=== PATIENT | male | born 1950 | race Caucasian/White ===

== ENCOUNTER 2019-07-06 11:47 | Emergency (ER) | payer MEDICARE, OTHER ==
[2019-07-06] MEDS ORDERED: Albuterol/Ipratropium 3.0-0.5 MG/3 ML Neb Soln NEB ONE (11:54)
[2019-07-06] MEDS ORDERED: methylPREDNISolone Sodium Succinate 125 MG/2 ML SDV IVPUSH ONE (11:54)
--- NOTE | 2019-07-06 12:06 | EDM.PDOC ---
ED HPI GENERAL MEDICAL PROBLEM - General Chief Complaint: Respiratory Problem Stated Complaint: APPENDICITIS Time Seen by Provider: 07/06/19 11:47 Source of Information: Reports: Patient, Family, Provider History Limitations: Reports: No Limitations - History of Present Illness INITIAL COMMENTS - FREE TEXT/NARRATIVE: The patient was seen earlier today and fund to have appendicitis. He had some wheezing when anaesthesia saw him and he was given a duoneb. He went over to OR and his breathing got worse with more wheezing, shortness of breath and he was confused. The [facility] was considering intubating him but with a simple mask he got better. He is not a candidate to have surgery here now. He was brought back over to have a transfer arranged. He has no lung history such as COPD or asthma. He does smoke 2 packs of cigarettes per day. Onset: Gradual Duration: Hour(s): Location: Reports: Abdomen Quality: Reports: Sharp Severity: Moderate Improves with: Reports: None Worsens with: Reports: None Associated Symptoms: Reports: Shortness of Breath. Denies: Chest Pain, Cough, Fever/Chills, Headaches, Nausea/Vomiting - Related Data Allergies Allergy/AdvReac Type Severity Reaction Status Date / Time No Known Allergies Allergy Verified 07/06/19 11:51 Home Meds: Home Meds Diclofenac Sodium [Diclofenac Sodium ER] 75 mg PO BID PRN 07/06/19 [History] Past Medical History - Past Health History Medical/Surgical History: Denies Medical/Surgical History Genitourinary History: Reports: BPH, Retention, Urinary Other Genitourinary History: Patient has had some form of urological procedure called a lift procedure. It appears to be some form procedure around the prostatic urethra without doing a TURP. Social & Family History - Living Situation & Occupation Living situation: Reports: Occupation: Retired ED ROS GENERAL - Review of Systems Review Of Systems: See Below Constitutional: Reports: No Symptoms HEENT: Reports: No Symptoms Respiratory: Reports: Shortness of Breath, Wheezing Cardiovascular: Reports: No Symptoms Endocrine: Reports: No Symptoms GI/Abdominal: Reports: Abdominal Pain. Denies: Nausea, Vomiting : Reports: No Symptoms Musculoskeletal: Reports: No Symptoms ED EXAM, GENERAL - Physical Exam Exam: See Below Exam Limited By: No Limitations General Appearance: Alert, Mild Distress Ears: Normal External Exam Nose: Normal Inspection Head: Atraumatic, Normocephalic Neck: Normal Inspection Respiratory/Chest: Respiratory Distress (Mild), Wheezing Cardiovascular: Regular Rate, Rhythm, No Edema, No Murmur GI/Abdominal: Soft, No Organomegaly, No Mass, Tender (Moderate tenderness to the right lower abdomen) Back Exam: Normal Inspection Extremities: Normal Inspection Course - Vital Signs Last Recorded V/S: Last Vital Signs Temp 101.6 F H 07/06/19 11:52 Pulse 114 H 07/06/19 11:52 Resp 22 H 07/06/19 11:52 BP 142/83 H 07/06/19 11:52 Pulse Ox 96 07/06/19 11:52 - Orders/Labs/Meds Orders: Active Orders 24 hr Category Date Time Status BIPAP Adult [RT BiPAP/CPAP] [] ASDIRECTED Care 07/06/19 11:53 Active RT Aerosol Therapy [] ASDIRECTED Care 07/06/19 11:54 Active Meds: Medications Discontinued Medications Generic Name Dose Route Start Last Admin Trade Name Freq PRN Reason Stop Dose Admin Albuterol/Ipratropium 3 ml 07/06/19 11:54 Duoneb 3.0-0.5 Mg/3 Ml NEB 07/06/19 11:55 ONETIME ONE Methylprednisolone Sodium Succinate 125 mg 07/06/19 11:54 Solu-Medrol IVPUSH 07/06/19 11:55 ONETIME ONE - Re-Assessments/Exams Free Text/Narrative Re-Assessment/Exam: 07/06/19 12:06 He was on a simple mask. I ordered BIPAP, solu-medrol 125mg IV, and duoneb. I called [facility] in [place] and talked with Dr Worthington and he accepted the patient. Departure - Departure Time of Disposition: 12:10 Disposition: DC/Tfer to Acute Hospital 02 Condition: Serious Clinical Impression: Appendicitis Qualifiers: Appendicitis type: acute appendicitis Acute appendicitis type: with localized peritonitis Appendicitis gangrene presence: without gangrene Appendicitis perforation presence: without perforation Appendicitis abscess presence: without abscess Qualified Code(s): K35.30 - Acute appendicitis with localized peritonitis, without perforation or gangrene Reactive airway disease Qualifiers: Asthma severity: moderate Asthma persistence: persistent Asthma complication type: with acute exacerbation Qualified Code(s): J45.41 - Moderate persistent asthma with (acute) exacerbation Respiratory failure Qualifiers: Chronicity: acute Respiratory failure complication: hypoxia Qualified Code(s): J96.01 - Acute respiratory failure with hypoxia - Discharge Information Referrals: Eric Millan MD [Primary Care Provider] - - My Orders Last 24 Hours: My Active Orders 07/06/19 11:53 BIPAP Adult [RT BiPAP/CPAP] [RC] ASDIRECTED 07/06/19 11:54 RT Aerosol Therapy [RC] ASDIRECTED - Assessment/Plan Last 24 Hours: My Active Orders 07/06/19 11:53 BIPAP Adult [RT BiPAP/CPAP] [RC] ASDIRECTED 07/06/19 11:54 RT Aerosol Therapy [RC] ASDIRECTED
== END 2019-07-06 12:20 ==
LOC: JD.ED 11:47
DX: J96.01 Acute respiratory failure with hypoxia (principal); J45.41 Moderate persistent asthma with (acute) exacerbation; K35.30 Acute appendicitis with localized peritonitis, without perforation or gangrene
CPT/HCPCS: 94640; 94660; 96374; 99285; J2930; J7620-GY

== ENCOUNTER → 2019-07-06 | Day surgery (SDC) | payer MEDICARE, OTHER ==
[~2019-07-06] MED LIST: Albuterol 0.083% 2.5 MG/3 ML Neb Soln NEB ONE; Albuterol/Ipratropium 3.0-0.5 MG/3 ML Neb Soln NEB ONE; Bupivacaine 0.5% 30 ML SDV ONE; Dexamethasone 4 MG/ML 5 ML MDV ONE; Dextrose 5%-0.9% NaCl 1,000 ML IV SCH; Diatrizoate Meglumine/Diatrizoate Sodium 37% 120 ML Bottle PO ONE; HYDROmorphone 0.5 MG/0.5 ML Syringe IVPUSH ONE; Iopamidol 612 MG/ML 100 ML Bottle IVPUSH ONE; Levofloxacin 250 MG Tab PO ONE; Lidocaine 1% 0 ML ONE; Lidocaine 2% Jelly 10 ML Urojet MUCMEM ONE; Meropenem 1 GM SDV ONE; Meropenem 1 GM in Sodium Chloride 0.9% 100 ML IV ONE; Midazolam 1 MG/ML 2 ML SDV ONE; Ondansetron 4 MG/2 ML SDV IVPUSH ONE; Ondansetron 4 MG/2 ML SDV ONE; Propofol 200 MG/20 ML SDV ONE; Rocuronium 50 MG/5 ML Vial ONE; Sodium Chloride 0.9% 10 ML Syringe FLUSH PRN; Sodium Chloride 0.9% 100 ML IV SCH; fentaNYL 250 MCG/5 ML SDV ONE; methylPREDNISolone Sodium Succinate 125 MG/2 ML SDV IVPUSH ONE
--- NOTE | 2019-07-06 05:43 | EDM.PDOC ---
<Conor Solomon - Last Filed: 07/06/19 08:52> ED HPI GENERAL MEDICAL PROBLEM - General Chief Complaint: Genitourinary Problem Stated Complaint: TROUBLE URINATING Time Seen by Provider: 07/06/19 05:38 - Related Data Allergies Allergy/AdvReac Type Severity Reaction Status Date / Time No Known Allergies Allergy Verified 07/06/19 11:51 Home Meds: Home Meds Diclofenac Sodium [Diclofenac Sodium ER] 75 mg PO BID PRN 07/06/19 [History] Course - Vital Signs Last Recorded V/S: Last Vital Signs Temp 36.7 C 07/06/19 05:32 Pulse 99 07/06/19 05:32 Resp 20 07/06/19 05:32 BP 143/76 H 07/06/19 05:32 Pulse Ox 87 L 07/06/19 09:57 - Orders/Labs/Meds Orders: Active Orders 24 hr Category Date Time Status Admission Status [Patient Status] [ADT] Routine ADT 07/06/19 11:19 Active Patient Status [ADT] Routine ADT 07/06/19 10:14 Active Bladder Scan [RC] ASDIRECTED Care 07/06/19 05:38 Active EKG Documentation Completion [RC] STAT Care 07/06/19 09:55 Active Insert Brand Catheter [Insert Urinary Catheter] [OM.PC] Care 07/06/19 05:45 Ordered Q24H RT Aerosol Therapy [RC] ASDIRECTED Care 07/06/19 09:57 Active Urinary Catheter Assessment [RC] ASDIRECTED Care 07/06/19 05:39 Active CULTURE BLOOD [BC] Stat Lab 07/06/19 07:30 Received CULTURE BLOOD [BC] Stat Lab 07/06/19 07:43 Received Dextrose 5%-0.9% NaCl [Dextrose 5%-Normal Saline] 1,000 Med 07/06/19 06:15 Active ml IV ASDIRECTED Sodium Chloride 0.9% [Normal Saline] 100 ml Med 07/06/19 07:15 Active IV ASDIRECTED Sodium Chloride 0.9% [Saline Flush] Med 07/06/19 07:09 Active 10 ml FLUSH ONETIME PRN Blood Culture x2 Reflex Set [OM.PC] Stat Oth 07/06/19 07:10 Ordered Schedule Procedure [COMM] Urgent Oth 07/06/19 09:40 Ordered Medication Orders Dextrose/Sodium Chloride (Dextrose 5%-Normal Saline) 1,000 mls @ 150 mls/hr IV ASDIRECTED KARLA Last Admin: 07/06/19 06:33 Dose: 150 mls/hr Sodium Chloride (Normal Saline) 100 mls @ 75 mls/hr IV ASDIRECTED KARLA Last Admin: 07/06/19 08:14 Dose: 75 mls/hr Sodium Chloride (Saline Flush) 10 ml FLUSH ONETIME PRN PRN Reason: IV FLUSH Last Admin: 07/06/19 08:14 Dose: 10 ml Labs: Laboratory Tests 07/06/19 07/06/19 07/06/19 Range/Units 05:52 06:36 06:36 WBC 21.99 H (4.23-9.07) K/mm3 RBC 5.57 (4.63-6.08) M/mm3 Hgb 14.1 (13.7-17.5) gm/dl Hct 42.8 (40.1-51.0) % MCV 76.8 L (79.0-92.2) fl MCH 25.3 L (25.7-32.2) pg MCHC 32.9 (32.2-35.5) g/dl RDW Std Deviation 50.2 H (35.1-43.9) fL Plt Count 276 (163-337) K/mm3 MPV 10.2 (9.4-12.3) fl Neutrophils % (Manual) 83 H (40-60) % Band Neutrophils % 0 (0-10) % Lymphocytes % (Manual) 12 L (20-40) % Atypical Lymphs % 0 % Monocytes % (Manual) 5 (2-10) % Eosinophils % (Manual) 0 L (0.8-7.0) % Basophils % (Manual) 0 L (0.2-1.2) Platelet Estimate Adequate Anisocytosis 1+ slight RBC Morph Comment Not Reportable PT 11.8 (9.7-12.0) SECONDS INR 1.09 Sodium (136-145) mEq/L Potassium (3.5-5.1) mEq/L Chloride (98-107) mEq/L Carbon Dioxide (21-32) mEq/L Anion Gap (5-15) BUN (7-18) mg/dL Creatinine (0.7-1.3) mg/dL Est Cr Clr Drug Dosing mL/min Estimated GFR (MDRD) (>60) mL/min BUN/Creatinine Ratio (14-18) Glucose (83-115) mg/dL Lactic Acid (0.4-2.0) mmol/L Calcium (8.5-10.1) mg/dL Total Bilirubin (0.2-1.0) mg/dL AST (15-37) U/L ALT (16-63) U/L Alkaline Phosphatase (46-116) U/L C-Reactive Protein (<1.0) mg/dL Total Protein (6.4-8.2) g/dl Albumin (3.4-5.0) g/dl Globulin gm/dL Albumin/Globulin Ratio (1-2) Lipase (73-393) U/L Urine Color Yellow (Yellow) Urine Appearance Clear (Clear) Urine pH 6.0 (5.0-8.0) Ur Specific [place] 1.025 (1.005-1.030) Urine Protein 1+ H (Negative) Urine Glucose (UA) Negative (Negative) Urine Ketones Trace H (Negative) Urine Occult Blood Negative (Negative) Urine Nitrite Negative (Negative) Urine Bilirubin 1+ H (Negative) Urine Urobilinogen 0.2 (0.2-1.0) Ur Leukocyte Esterase Negative (Negative) Urine RBC 0-5 (0-5) /hpf Urine WBC 0-5 (0-5) /hpf Ur Squamous Epith Cells 0-5 (0-5) /hpf Amorphous Sediment Rare H (NOT SEEN) /hpf Urine Bacteria Few (FEW) /hpf Urine Mucus Not seen (FEW) /hpf 07/06/19 07/06/19 Range/Units 06:36 07:30 WBC (4.23-9.07) K/mm3 RBC (4.63-6.08) M/mm3 Hgb (13.7-17.5) gm/dl Hct (40.1-51.0) % MCV (79.0-92.2) fl MCH (25.7-32.2) pg MCHC (32.2-35.5) g/dl RDW Std Deviation (35.1-43.9) fL Plt Count (163-337) K/mm3 MPV (9.4-12.3) fl Neutrophils % (Manual) (40-60) % Band Neutrophils % (0-10) % Lymphocytes % (Manual) (20-40) % Atypical Lymphs % % Monocytes % (Manual) (2-10) % Eosinophils % (Manual) (0.8-7.0) % Basophils % (Manual) (0.2-1.2) Platelet Estimate Anisocytosis RBC Morph Comment PT (9.7-12.0) SECONDS INR Sodium 137 (136-145) mEq/L Potassium 3.9 (3.5-5.1) mEq/L Chloride 104 (98-107) mEq/L Carbon Dioxide 24 (21-32) mEq/L Anion Gap 12.9 (5-15) BUN 24 H (7-18) mg/dL Creatinine 1.4 H (0.7-1.3) mg/dL Est Cr Clr Drug Dosing 53.12 mL/min Estimated GFR (MDRD) 50 (>60) mL/min BUN/Creatinine Ratio 17.1 (14-18) Glucose 133 H (83-115) mg/dL Lactic Acid 1.0 (0.4-2.0) mmol/L Calcium 8.6 (8.5-10.1) mg/dL Total Bilirubin 0.8 (0.2-1.0) mg/dL AST 15 (15-37) U/L ALT 20 (16-63) U/L Alkaline Phosphatase 88 (46-116) U/L C-Reactive Protein 16.9 H* (<1.0) mg/dL Total Protein 7.3 (6.4-8.2) g/dl Albumin 3.5 (3.4-5.0) g/dl Globulin 3.8 gm/dL Albumin/Globulin Ratio 0.9 L (1-2) Lipase 88 (73-393) U/L Urine Color (Yellow) Urine Appearance (Clear) Urine pH (5.0-8.0) Ur Specific [place] (1.005-1.030) Urine Protein (Negative) Urine Glucose (UA) (Negative) Urine Ketones (Negative) Urine Occult Blood (Negative) Urine Nitrite (Negative) Urine Bilirubin (Negative) Urine Urobilinogen (0.2-1.0) Ur Leukocyte Esterase (Negative) Urine RBC (0-5) /hpf Urine WBC (0-5) /hpf Ur Squamous Epith Cells (0-5) /hpf Amorphous Sediment (NOT SEEN) /hpf Urine Bacteria (FEW) /hpf Urine Mucus (FEW) /hpf Meds: Medications Generic Name Dose Route Start Last Admin Trade Name Freq PRN Reason Stop Dose Admin Dextrose/Sodium Chloride 1,000 mls @ 150 mls/hr 07/06/19 06:15 07/06/19 06:33 Dextrose 5%-Normal Saline IV 150 mls/hr ASDIRECTED KARLA Administration Sodium Chloride 100 mls @ 75 mls/hr 07/06/19 07:15 07/06/19 08:14 Normal Saline IV 75 mls/hr ASDIRECTED KARLA Administration Sodium Chloride 10 ml 07/06/19 07:09 07/06/19 08:14 Saline Flush FLUSH 10 ml ONETIME PRN Administration IV FLUSH Discontinued Medications Generic Name Dose Route Start Last Admin Trade Name Freq PRN Reason Stop Dose Admin Albuterol 2.5 mg 07/06/19 10:30 07/06/19 10:10 Proventil Neb Soln NEB 07/06/19 10:31 2.5 mg ONETIME ONE Administration Albuterol/Ipratropium 3 ml 07/06/19 11:46 07/06/19 12:05 Duoneb 3.0-0.5 Mg/3 Ml NEB 07/06/19 11:47 Not Given ONETIME ONE Bupivacaine HCl Confirm 07/06/19 10:53 Marcaine 0.5% Administered 07/06/19 10:54 Dose 30 ml .ROUTE .STK-MED ONE Dexamethasone Confirm 07/06/19 11:18 Dexamethasone Administered 07/06/19 11:19 Dose 20 mg .ROUTE .STK-MED ONE Diatrizoate Meglum/Diatrizoate Sod 120 ml 07/06/19 07:09 Gastrografin 37% PO 07/06/19 07:10 ONETIME ONE Fentanyl Confirm 07/06/19 11:20 Sublimaze Administered 07/06/19 11:21 Dose 250 mcg .ROUTE .STK-MED ONE Hydromorphone HCl 0.5 mg 07/06/19 06:10 07/06/19 06:34 Dilaudid IVPUSH 07/06/19 06:11 0.5 mg ONETIME ONE Administration Hydromorphone HCl 0.5 mg 07/06/19 08:50 07/06/19 09:07 Dilaudid IVPUSH 07/06/19 08:51 0.5 mg ONETIME ONE Administration Meropenem 1 gm/ Sodium 100 mls @ 200 mls/hr 07/06/19 07:10 07/06/19 08:28 Chloride IV 07/06/19 07:39 200 mls/hr ONETIME ONE Administration Lidocaine HCl Confirm 07/06/19 11:18 Xylocaine-Mpf 1% Administered 07/06/19 11:19 Dose 4 mls @ as directed .ROUTE .STK-MED ONE Iopamidol 100 ml 07/06/19 07:09 07/06/19 08:13 Isovue-300 (61%) IVPUSH 07/06/19 07:10 100 ml ONETIME ONE Administration Levofloxacin 500 mg 07/06/19 05:39 07/06/19 05:43 Levaquin PO 07/06/19 05:40 500 mg ONETIME ONE Administration Lidocaine HCl 10 ml 07/06/19 05:38 07/06/19 05:43 Xylocaine 2% Jelly MUCMEM 07/06/19 05:39 10 ml ONETIME ONE Administration Lidocaine HCl 10 ml 07/06/19 05:41 Xylocaine 2% Jelly MUCMEM 07/06/19 05:42 ONETIME ONE Meropenem Confirm 07/06/19 07:34 07/06/19 08:57 Merrem Administered 07/06/19 07:35 Not Given Dose 1 gm .ROUTE .STK-MED ONE Methylprednisolone Sodium Succinate 125 mg 07/06/19 11:46 07/06/19 12:06 Solu-Medrol IVPUSH 07/06/19 11:47 Not Given ONETIME ONE Midazolam HCl Confirm 07/06/19 11:21 Versed 1 Mg/Ml Administered 07/06/19 11:22 Dose 2 mg .ROUTE .STK-MED ONE Ondansetron HCl 4 mg 07/06/19 06:11 07/06/19 06:34 Zofran IVPUSH 07/06/19 06:12 4 mg ONETIME ONE Administration Ondansetron HCl Confirm 07/06/19 11:18 Zofran Administered 07/06/19 11:19 Dose 4 mg .ROUTE .STK-MED ONE Propofol Confirm 07/06/19 11:17 Diprivan 20 Ml Administered 07/06/19 11:18 Dose 200 mg .ROUTE .STK-MED ONE Rocuronium [place] Confirm 07/06/19 11:18 Zemuron Administered 07/06/19 11:19 Dose 50 mg .ROUTE .STK-MED ONE - Re-Assessments/Exams Free Text/Narrative Re-Assessment/Exam: 07/06/19 08:[address] Link. The CT is back and it shows dilated appendix with significant surrounding inflammatory change compatible with appendicitis. Other findings believed to be incidental. The patient is getting meropenem. I called Dr Etienne and he will come see the patient. Departure - Departure Time of Disposition: 09:00 Disposition: DC/Tfer to [facility] Condition: Fair Clinical Impression: Appendicitis Qualifiers: Appendicitis type: acute appendicitis Acute appendicitis type: with localized peritonitis Appendicitis gangrene presence: without gangrene Appendicitis perforation presence: without perforation Appendicitis abscess presence: without abscess Qualified Code(s): K35.30 - Acute appendicitis with localized peritonitis, without perforation or gangrene - Discharge Information - My Orders Last 24 Hours: My Active Orders 07/06/19 05:38 Bladder Scan [RC] ASDIRECTED 07/06/19 05:39 Urinary Catheter Assessment [RC] ASDIRECTED 07/06/19 05:45 Insert Brand Catheter [Insert Urinary Catheter] [OM.PC] Q24H 07/06/19 06:15 Dextrose 5%-0.9% NaCl [Dextrose 5%-Normal Saline] 1,000 ml IV ASDIRECTED 07/06/19 07:09 Sodium Chloride 0.9% [Saline Flush] 10 ml FLUSH ONETIME PRN 07/06/19 07:10 Blood Culture x2 Reflex Set [OM.PC] Stat 07/06/19 07:15 Sodium Chloride 0.9% [Normal Saline] 100 ml IV ASDIRECTED 07/06/19 07:30 CULTURE BLOOD [BC] Stat 07/06/19 07:43 CULTURE BLOOD [BC] Stat - Assessment/Plan Last 24 Hours: My Active Orders 07/06/19 05:38 Bladder Scan [RC] ASDIRECTED 07/06/19 05:39 Urinary Catheter Assessment [RC] ASDIRECTED 07/06/19 05:45 Insert Brand Catheter [Insert Urinary Catheter] [OM.PC] Q24H 07/06/19 06:15 Dextrose 5%-0.9% NaCl [Dextrose 5%-Normal Saline] 1,000 ml IV ASDIRECTED 07/06/19 07:09 Sodium Chloride 0.9% [Saline Flush] 10 ml FLUSH ONETIME PRN 07/06/19 07:10 Blood Culture x2 Reflex Set [OM.PC] Stat 07/06/19 07:15 Sodium Chloride 0.9% [Normal Saline] 100 ml IV ASDIRECTED 07/06/19 07:30 CULTURE BLOOD [BC] Stat 07/06/19 07:43 CULTURE BLOOD [BC] Stat <FaribaMaxx Aggarwal - Last Filed: 07/06/19 20:15> ED HPI GENERAL MEDICAL PROBLEM - General Source of Information: Reports: Patient, Family (spouse) History Limitations: Reports: No Limitations - History of Present Illness INITIAL COMMENTS - FREE TEXT/NARRATIVE: 69-year-old male presents to the ED with difficulty passing his urine for the last 2 days. He states his only been able to get out a few dribbles yesterday and nothing overnight. He is in terrible pain. Feels diffusely abdominally bloated. Her's that he had a urological procedure about a year ago called a urologist. Apparently clips were placed somewhere in the prostatic urethra to try and improve urine flow. He used to be on Flomax but is no longer on this. It doesn't sound like he had a transurethral resection of his prostate. Onset: Gradual Onset Date: 07/04/19 ((Ar problems emptying his bladder for the last 2 days. Feels like he has to go badly now but unable to pass any water.) Duration: Day(s):, Getting Worse (Positive for the last 2 days.) Location: Reports: Abdomen (Diffuse lower abdominal pain.) Quality: Reports: Ache, Other Severity: Moderate (With occasional spastic type pain) Improves with: Reports: None ( 8 out of 10) Worsens with: Reports: None Context: Reports: Other (Unable to void.). Denies: Activity, Exercise, Lifting , Sick Contact, Trauma Associated Symptoms: Reports: No Other Symptoms. 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 It appears to be some form procedure around the prostatic urethra without doing a TURP. Social & Family History - Living Situation & Occupation Living situation: Reports: Occupation: Retired ED ROS GENERAL - Review of Systems Review Of Systems: See Below Constitutional: Reports: Fatigue. Denies: Fever, Chills, Malaise HEENT: Reports: Glasses (Not being able to sleep all night.) Respiratory: Reports: No Symptoms Cardiovascular: Reports: No Symptoms Endocrine: Reports: No Symptoms GI/Abdominal: Reports: Abdominal Pain (Diffuse lower abdominal pain mostly suprapubically radiating into his back.) : Reports: Urinary Retention (A few dribbles but is unable to void at all now. ), Other Musculoskeletal: Reports: Back Pain Skin: Reports: No Symptoms (Referred from the lower abdomen) Neurological: Reports: No Symptoms Psychiatric: Reports: No Symptoms Hematologic/Lymphatic: Reports: No Symptoms Immunologic: Reports: No Symptoms ED EXAM, RENAL/ - Physical Exam Exam: See Below Exam Limited By: No Limitations General Appearance: Alert, Moderate Distress (Using quite a bit of pain.), Other (Temperatures 36.7. Heart rate is 99. Respiratory distress 20 BP 143/76 sats are 90% on room air.) Eye Exam: Bilateral Eye: Normal Inspection Throat/Mouth: Normal Inspection, Normal Lips, Normal Teeth, Normal Oropharynx Head: Atraumatic, Normocephalic Neck: Normal Inspection, Supple, Non-Tender, Full Range of Motion. No: Lymphadenopathy (L), Lymphadenopathy (R) Respiratory/Chest: Lungs Clear (Mild tachypnea due to pain response.), No Accessory Muscle Use, Respiratory Distress, Decreased Breath Sounds (Decreased air entry to both posterior lung reardon compatible with COPD.). No: Rhonchi, Wheezing Cardiovascular: Normal Peripheral Pulses, Regular Rate, Rhythm, No Edema, No Gallop, No Murmur, No Rub GI/Abdominal: Distended (Bowel sounds are quiet sent in all 4 quadrants. Stented and all to percussion lower abdomen up past the umbilicus.), Tender ( Right tender to palpation suprapubically.), Abnormal Bowel Sounds (Male) Exam: No Hernia Extremities: Normal Inspection, Normal Range of Motion, Non-Tender, No Pedal Edema Neurological: Alert, Oriented, CN II-XII Intact, Normal Cognition Psychiatric: Anxious Skin Exam: Warm, Dry, Intact, Normal Color, No Rash Course - Orders/Labs/Meds Orders: Active Orders 24 hr Category Date Time Status Admission Status [Patient Status] [ADT] Routine ADT 07/06/19 11:19 Active Patient Status [ADT] Routine ADT 07/06/19 10:14 Active Bladder Scan [RC] ASDIRECTED Care 07/06/19 05:38 Active EKG Documentation Completion [RC] STAT Care 07/06/19 09:55 Active Insert Brand Catheter [Insert Urinary Catheter] [OM.PC] Care 07/06/19 05:45 Ordered Q24H RT Aerosol Therapy [RC] ASDIRECTED Care 07/06/19 09:57 Active Urinary Catheter Assessment [RC] ASDIRECTED Care 07/06/19 05:39 Active CULTURE BLOOD [BC] Stat Lab 07/06/19 07:30 Received CULTURE BLOOD [BC] Stat Lab 07/06/19 07:43 Received Dextrose 5%-0.9% NaCl [Dextrose 5%-Normal Saline] 1,000 Med 07/06/19 06:15 Active ml IV ASDIRECTED Sodium Chloride 0.9% [Normal Saline] 100 ml Med 07/06/19 07:15 Active IV ASDIRECTED Sodium Chloride 0.9% [Saline Flush] Med 07/06/19 07:09 Active 10 ml FLUSH ONETIME PRN Blood Culture x2 Reflex Set [OM.PC] Stat Oth 07/06/19 07:10 Ordered Schedule Procedure [COMM] Urgent Oth 07/06/19 09:40 Ordered Medication Orders Dextrose/Sodium Chloride (Dextrose 5%-Normal Saline) 1,000 mls @ 150 mls/hr IV ASDIRECTED KARLA Last Admin: 07/06/19 06:33 Dose: 150 mls/hr Sodium Chloride (Normal Saline) 100 mls @ 75 mls/hr IV ASDIRECTED KARLA Last Admin: 07/06/19 08:14 Dose: 75 mls/hr Sodium Chloride (Saline Flush) 10 ml FLUSH ONETIME PRN PRN Reason: IV FLUSH Last Admin: 07/06/19 08:14 Dose: 10 ml Labs: Laboratory Tests 1007/06/19 07/06/19 Range/Units 05:52 06:36 06:36 WBC 21.99 H (4.23-9.07) K/mm3 RBC 5.57 (4.63-6.08) M/mm3 Hgb 14.1 (13.7-17.5) gm/dl Hct 42.8 (40.1-51.0) % MCV 76.8 L (79.0-92.2) fl MCH 25.3 L (25.7-32.2) pg MCHC 32.9 (32.2-35.5) g/dl RDW Std Deviation 50.2 H (35.1-43.9) fL Plt Count 276 (163-337) K/mm3 MPV 10.2 (9.4-12.3) fl Neutrophils % (Manual) 83 H (40-60) % Band Neutrophils % 0 (0-10) % Lymphocytes % (Manual) 12 L (20-40) % Atypical Lymphs % 0 % Monocytes % (Manual) 5 (2-10) % Eosinophils % (Manual) 0 L (0.8-7.0) % Basophils % (Manual) 0 L (0.2-1.2) Platelet Estimate Adequate Anisocytosis 1+ slight RBC Morph Comment Not Reportable PT 11.8 (9.7-12.0) SECONDS INR 1.09 Sodium (136-145) mEq/L Potassium (3.5-5.1) mEq/L Chloride (98-107) mEq/L Carbon Dioxide (21-32) mEq/L Anion Gap (5-15) BUN (7-18) mg/dL Creatinine (0.7-1.3) mg/dL Est Cr Clr Drug Dosing mL/min Estimated GFR (MDRD) (>60) mL/min BUN/Creatinine Ratio (14-18) Glucose (83-115) mg/dL Lactic Acid (0.4-2.0) mmol/L Calcium (8.5-10.1) mg/dL Total Bilirubin (0.2-1.0) mg/dL AST (15-37) U/L ALT (16-63) U/L Alkaline Phosphatase (46-116) U/L C-Reactive Protein (<1.0) mg/dL Total Protein (6.4-8.2) g/dl Albumin (3.4-5.0) g/dl Globulin gm/dL Albumin/Globulin Ratio (1-2) Lipase (73-393) U/L Urine Color Yellow (Yellow) Urine Appearance Clear (Clear) Urine pH 6.0 (5.0-8.0) Ur Specific [place] 1.025 (1.005-1.030) Urine Protein 1+ H (Negative) Urine Glucose (UA) Negative (Negative) Urine Ketones Trace H (Negative) Urine Occult Blood Negative (Negative) Urine Nitrite Negative (Negative) Urine Bilirubin 1+ H (Negative) Urine Urobilinogen 0.2 (0.2-1.0) Ur Leukocyte Esterase Negative (Negative) Urine RBC 0-5 (0-5) /hpf Urine WBC 0-5 (0-5) /hpf Ur Squamous Epith Cells 0-5 (0-5) /hpf Amorphous Sediment Rare H (NOT SEEN) /hpf Urine Bacteria Few (FEW) /hpf Urine Mucus Not seen (FEW) /hpf 07/06/19 07/06/19 Range/Units 06:36 07:30 WBC (4.23-9.07) K/mm3 RBC (4.63-6.08) M/mm3 Hgb (13.7-17.5) gm/dl Hct (40.1-51.0) % MCV (79.0-92.2) fl MCH (25.7-32.2) pg MCHC (32.2-35.5) g/dl RDW Std Deviation (35.1-43.9) fL Plt Count (163-337) K/mm3 MPV (9.4-12.3) fl Neutrophils % (Manual) (40-60) % Band Neutrophils % (0-10) % Lymphocytes % (Manual) (20-40) % Atypical Lymphs % % Monocytes % (Manual) (2-10) % Eosinophils % (Manual) (0.8-7.0) % Basophils % (Manual) (0.2-1.2) Platelet Estimate Anisocytosis RBC Morph Comment PT (9.7-12.0) SECONDS INR Sodium 137 (136-145) mEq/L Potassium 3.9 (3.5-5.1) mEq/L Chloride 104 (98-107) mEq/L Carbon Dioxide 24 (21-32) mEq/L Anion Gap 12.9 (5-15) BUN 24 H (7-18) mg/dL Creatinine 1.4 H (0.7-1.3) mg/dL Est Cr Clr Drug Dosing 53.12 mL/min Estimated GFR (MDRD) 50 (>60) mL/min BUN/Creatinine Ratio 17.1 (14-18) Glucose 133 H (83-115) mg/dL Lactic Acid 1.0 (0.4-2.0) mmol/L Calcium 8.6 (8.5-10.1) mg/dL Total Bilirubin 0.8 (0.2-1.0) mg/dL AST 15 (15-37) U/L ALT 20 (16-63) U/L Alkaline Phosphatase 88 (46-116) U/L C-Reactive Protein 16.9 H* (<1.0) mg/dL Total Protein 7.3 (6.4-8.2) g/dl Albumin 3.5 (3.4-5.0) g/dl Globulin 3.8 gm/dL Albumin/Globulin Ratio 0.9 L (1-2) Lipase 88 (73-393) U/L Urine Color (Yellow) Urine Appearance (Clear) Urine pH (5.0-8.0) Ur Specific [place] (1.005-1.030) Urine Protein (Negative) Urine Glucose (UA) (Negative) Urine Ketones (Negative) Urine Occult Blood (Negative) Urine Nitrite (Negative) Urine Bilirubin (Negative) Urine Urobilinogen (0.2-1.0) Ur Leukocyte Esterase (Negative) Urine RBC (0-5) /hpf Urine WBC (0-5) /hpf Ur Squamous Epith Cells (0-5) /hpf Amorphous Sediment (NOT SEEN) /hpf Urine Bacteria (FEW) /hpf Urine Mucus (FEW) /hpf Meds: Medications Generic Name Dose Route Start Last Admin Trade Name Freq PRN Reason Stop Dose Admin Dextrose/Sodium Chloride 1,000 mls @ 150 mls/hr 07/06/19 06:15 07/06/19 06:33 Dextrose 5%-Normal Saline IV 150 mls/hr ASDIRECTED KARLA Administration Sodium Chloride 100 mls @ 75 mls/hr 07/06/19 07:15 07/06/19 08:14 Normal Saline IV 75 mls/hr ASDIRECTED KARLA Administration Sodium Chloride 10 ml 07/06/19 07:09 07/06/19 08:14 Saline Flush FLUSH 10 ml ONETIME PRN Administration IV FLUSH Discontinued Medications Generic Name Dose Route Start Last Admin Trade Name Lc PRN Reason Stop Dose Admin Albuterol 2.5 mg 07/06/19 10:30 07/06/19 10:10 Proventil Neb Soln NEB 07/06/19 10:31 2.5 mg ONETIME ONE Administration Albuterol/Ipratropium 3 ml 07/06/19 11:46 07/06/19 12:05 Duoneb 3.0-0.5 Mg/3 Ml NEB 07/06/19 11:47 Not Given ONETIME ONE Bupivacaine HCl Confirm 07/06/19 10:53 Marcaine 0.5% Administered 07/06/19 10:54 Dose 30 ml .ROUTE .STK-MED ONE Dexamethasone Confirm 07/06/19 11:18 Dexamethasone Administered 07/06/19 11:19 Dose 20 mg .ROUTE .STK-MED ONE Diatrizoate Meglum/Diatrizoate Sod 120 ml 07/06/19 07:09 Gastrografin 37% PO 07/06/19 07:10 ONETIME ONE Fentanyl Confirm 07/06/19 11:20 Sublimaze Administered 07/06/19 11:21 Dose 250 mcg .ROUTE .STK-MED ONE Hydromorphone HCl 0.5 mg 07/06/19 06:10 07/06/19 06:34 Dilaudid IVPUSH 07/06/19 06:11 0.5 mg ONETIME ONE Administration Hydromorphone HCl 0.5 mg 07/06/19 08:50 07/06/19 09:07 Dilaudid IVPUSH 07/06/19 08:51 0.5 mg ONETIME ONE Administration Meropenem 1 gm/ Sodium 100 mls @ 200 mls/hr 07/06/19 07:10 07/06/19 08:28 Chloride IV 07/06/19 07:39 200 mls/hr ONETIME ONE Administration Lidocaine HCl Confirm 07/06/19 11:18 Xylocaine-Mpf 1% Administered 07/06/19 11:19 Dose 4 mls @ as directed .ROUTE .STK-MED ONE Iopamidol 100 ml 07/06/19 07:09 07/06/19 08:13 Isovue-300 (61%) IVPUSH 07/06/19 07:10 100 ml ONETIME ONE Administration Levofloxacin 500 mg 07/06/19 05:39 07/06/19 05:43 Levaquin PO 07/06/19 05:40 500 mg ONETIME ONE Administration Lidocaine HCl 10 ml 07/06/19 05:38 07/06/19 05:43 Xylocaine 2% Jelly MUCMEM 07/06/19 05:39 10 ml ONETIME ONE Administration Lidocaine HCl 10 ml 07/06/19 05:41 Xylocaine 2% Jelly MUCMEM 07/06/19 05:42 ONETIME ONE Meropenem Confirm 07/06/19 07:34 07/06/19 08:57 Merrem Administered 07/06/19 07:35 Not Given Dose 1 gm .ROUTE .STK-MED ONE Methylprednisolone Sodium Succinate 125 mg 07/06/19 11:46 07/06/19 12:06 Solu-Medrol IVPUSH 07/06/19 11:47 Not Given ONETIME ONE Midazolam HCl Confirm 07/06/19 11:21 Versed 1 Mg/Ml Administered 07/06/19 11:22 Dose 2 mg .ROUTE .STK-MED ONE Ondansetron HCl 4 mg 07/06/19 06:11 07/06/19 06:34 Zofran IVPUSH 07/06/19 06:12 4 mg ONETIME ONE Administration Ondansetron HCl Confirm 07/06/19 11:18 Zofran Administered 07/06/19 11:19 Dose 4 mg .ROUTE .STK-MED ONE Propofol Confirm 07/06/19 11:17 Diprivan 20 Ml Administered 07/06/19 11:18 Dose 200 mg .ROUTE .STK-MED ONE Rocuronium [place] Confirm 07/06/19 11:18 Zemuron Administered 07/06/19 11:19 Dose 50 mg .ROUTE .STK-MED ONE - Radiology Interpretation Free Text/Narrative:: 69-year-old male presents to the ED with a 2 day history of an inability to empty his bladder completely. Yesterday can void small quantities and dribble bit today he can't void at all. He has diffuse lower abdominal pain radiating to his back. Ladder scan suggests only 270 mils in the urinary bladder but he appears to be more distended than the slight greater than 512,000 mils. Plan Urojet and Brand catheter to be placed and left in place. Urinalysis. Given Levaquin 500 mg by mouth. - Re-Assessments/Exams Free Text/Narrative Re-Assessment/Exam: 07/06/19 06:00: Bladder scan only showed 270,000 the bladder. And that's all about that came out with a Brand catheter. He still has diffuse abdominal tenderness. He now tells me that he is unable to stand erect and has to walk stooped over for the last couple of days. Is able to localize the pain quite well to the left lower quadrant abdomen with the sigmoid colon highly suspicious for diverticulitis. Likely he has peritonitis that seems to localize more to the left lower quadrant. He denies any fever or chills. States his appetite has been a little less than normal. Hasn't had a bowel movement for 2 days. Plan we will proceed with a KUB and routine lab work without blood cultures at this time since he's afebrile. 07/06/19 06:15: Patient will be given Zofran 4 mg IV and Dilaudid 0.5 mg IV for pain relief. 07/06/19 06:51 KUB reveals increased air throughout the colon perhaps increased stool in the descending colon. No signs of bowel obstruction. Due to the pain well localized to left or quadrant is suspicion of possible diverticulitis is entertained. He will have CT of abdomen and pelvis performed with oral and IV contrast. I will order this way but his creatinine will have to be reviewed prior to giving or receiving IV contrast. 07/06/19 07:05 patient states the pain medicine is starting to help take the edge off the pain. Advised that we need to proceed with with CT of the abdomen. His care will be turned over to Dr. Solomon as it is change of shift. He will check on him after the CT is completed. 07/06/19 07:08 Labs reveal an elevated white count at 21.99. There is a marked left shift of 83% neutrophils and no bands. Hemoglobin is 14.1 hematocrit is 42.8 MCV slightly low at 76.8 suggesting iron deficiency. Platelet counts 276, 000. PT is 11.8 with an INR 1.09. Sodium 137 with potassium of 3.9. Chloride is 14 with a bicarbonate of 24. Anion gap is 12.9 , BUN is 24 with a creatinine of 1.4. GFR is 50. Glucose is 133 calcium is 8.6 liver function is normal. C- reactive protein is markedly elevated at 16.9. Total protein is 7.3 albumin fraction 3.5 lipase is 88. Urinalysis shows 1+ proteinuria trace of ketones 1+ bilirubin negative leukocyte esterase and no white blood cells or red cells on the slide. Patient obviously has an infective process intra-abdominally either appendicitis with rupture or diverticulitis. He is not the greatest historian but clinically he does show peritoneal signs on examination. I will have blood cultures 2 done now and a lactic acid before starting him on antibiotics. He will receive meropenem 1gm IV. - My Orders Last 24 Hours: My Active Orders 07/06/19 05:38 Bladder Scan [RC] ASDIRECTED 07/06/19 05:39 Urinary Catheter Assessment [RC] ASDIRECTED 07/06/19 05:45 Insert Brand Catheter [Insert Urinary Catheter] [OM.PC] Q24H 07/06/19 06:15 Dextrose 5%-0.9% NaCl [Dextrose 5%-Normal Saline] 1,000 ml IV ASDIRECTED 07/06/19 07:09 Sodium Chloride 0.9% [Saline Flush] 10 ml FLUSH ONETIME PRN 07/06/19 07:10 Blood Culture x2 Reflex Set [OM.PC] Stat 07/06/19 07:15 Sodium Chloride 0.9% [Normal Saline] 100 ml IV ASDIRECTED 07/06/19 07:30 CULTURE BLOOD [BC] Stat 07/06/19 07:43 CULTURE BLOOD [BC] Stat - Assessment/Plan Last 24 Hours: My Active Orders 07/06/19 05:38 Bladder Scan [RC] ASDIRECTED 07/06/19 05:39 Urinary Catheter Assessment [RC] ASDIRECTED 07/06/19 05:45 Insert Brand Catheter [Insert Urinary Catheter] [OM.PC] Q24H 07/06/19 06:15 Dextrose 5%-0.9% NaCl [Dextrose 5%-Normal Saline] 1,000 ml IV ASDIRECTED 07/06/19 07:09 Sodium Chloride 0.9% [Saline Flush] 10 ml FLUSH ONETIME PRN 07/06/19 07:10 Blood Culture x2 Reflex Set [OM.PC] Stat 07/06/19 07:15 Sodium Chloride 0.9% [Normal Saline] 100 ml IV ASDIRECTED 07/06/19 07:30 CULTURE BLOOD [BC] Stat 07/06/19 07:43 CULTURE BLOOD [BC] Stat
--- NOTE | 2019-07-06 07:17 | CR ---
Abdomen: Supine view of the abdomen was obtained. Comparison: No prior abdominal x-ray. Bowel gas pattern is normal. Multiple metallic densities are seen overlying the upper pubic symphysis of uncertain etiology, possibly are located within the prostate gland. Calcifications are seen within the pelvis compatible with phleboliths. Mild arterial calcification is noted. No soft tissue abnormality is seen. Impression: 1. Findings as noted above believed to be incidental. Nothing acute is seen on abdominal x-ray. Diagnostic code #2
--- NOTE | 2019-07-06 08:44 | CT ---
CT abdomen and pelvis Technique: Multiple axial sections were obtained from above the dome of the diaphragm inferiorly through the pubic symphysis. Intravenous and oral contrast was utilized. Delayed images were also obtained through the abdomen and pelvis. Comparison: Previous abdominal x-ray performed earlier on the same day (6:18 AM) Findings: Visualized lung bases show nothing acute. Liver contains no focal abnormality. Spleen appears within normal limits. Adrenal glands show no nodule. Pancreas is within normal limits. Kidney show symmetric contrast enhancement. Small cysts are scattered within both kidneys, more numerous on the right side. Gallbladder contains no calcified gallstones. Aorta shows atherosclerotic change without aneurysm. Atherosclerotic change continues into the iliac vessels. No retroperitoneal adenopathy is seen. No pelvic mass or adenopathy is seen. No free fluid is seen. Brand catheter is noted within the bladder. Densities within the prostate gland likely representing previous prostate surgery. Dilated appendix is seen with prominent surrounding inflammatory change compatible with appendicitis. Delayed images show contrast within the distal ureters and within the bladder. Bladder wall is somewhat thickened. Bone window settings were reviewed which show scattered degenerative change within the spine. Minimal fat-containing umbilical hernia is noted. Impression: 1. Dilated appendix with significant surrounding inflammatory change compatible with appendicitis. 2. Other findings as noted above believed to be incidental. Diagnostic code #5
--- NOTE | 2019-07-06 09:55 | PCM.PREANE ---
Preanesthetic Assessment - Anesthesia/Transfusion/Family Hx Anesthesia History: Prior Anesthesia Without Reaction Family History of Anesthesia Reaction: No Transfusion History: No Prior Transfusion(s) Intubation History: Unknown - Review of Systems Gastrointestinal: No Symptoms (BPH with urinary retention noted and currently one of patient's chief complaints.), Abdominal Pain Neurological: No Symptoms (History of back pain) Other: Reports: None - Physical Assessment NPO Status Date: 07/06/19 NPO Status Time: 07:10 Vital Signs: Last Vital Signs Temp 36.7 C 07/06/19 05:32 Pulse 99 07/06/19 05:32 Resp 20 07/06/19 05:32 BP 143/76 H 07/06/19 05:32 Pulse Ox 90 L 07/06/19 05:32 Height: 1.83 m Weight: 99.79 kg ASA Class: 2E Mental Status: Alert & Oriented x3 - Lab Values: Laboratory Last Values WBC 21.99 K/mm3 (4.23-9.07) H 07/06/19 06:36 RBC 5.57 M/mm3 (4.63-6.08) 07/06/19 06:36 Hgb 14.1 gm/dl (13.7-17.5) 07/06/19 06:36 Hct 42.8 % (40.1-51.0) 07/06/19 06:36 MCV 76.8 fl (79.0-92.2) L 07/06/19 06:36 MCH 25.3 pg (25.7-32.2) L 07/06/19 06:36 MCHC 32.9 g/dl (32.2-35.5) 07/06/19 06:36 RDW Std Deviation 50.2 fL (35.1-43.9) H 07/06/19 06:36 Plt Count 276 K/mm3 (163-337) 07/06/19 06:36 MPV 10.2 fl (9.4-12.3) 07/06/19 06:36 Neutrophils % (Manual) 83 % (40-60) H 07/06/19 06:36 Band Neutrophils % 0 % (0-10) 07/06/19 06:36 Lymphocytes % (Manual) 12 % (20-40) L 07/06/19 06:36 Atypical Lymphs % 0 % 07/06/19 06:36 Monocytes % (Manual) 5 % (2-10) 07/06/19 06:36 Eosinophils % (Manual) 0 % (0.8-7.0) L 07/06/19 06:36 Basophils % (Manual) 0 (0.2-1.2) L 07/06/19 06:36 Platelet Estimate Adequate 07/06/19 06:36 Anisocytosis 1+ slight 07/06/19 06:36 RBC Morph Comment Not Reportable 07/06/19 06:36 PT 11.8 SECONDS (9.7-12.0) 07/06/19 06:36 INR 1.09 07/06/19 06:36 Sodium 137 mEq/L (136-145) 07/06/19 06:36 Potassium 3.9 mEq/L (3.5-5.1) 07/06/19 06:36 Chloride 104 mEq/L (98-107) 07/06/19 06:36 Carbon Dioxide 24 mEq/L (21-32) 07/06/19 06:36 Anion Gap 12.9 (5-15) 07/06/19 06:36 BUN 24 mg/dL (7-18) H 07/06/19 06:36 Creatinine 1.4 mg/dL (0.7-1.3) H 07/06/19 06:36 Est Cr Clr Drug Dosing 53.12 mL/min 07/06/19 06:36 Estimated GFR (MDRD) 50 mL/min (>60) 07/06/19 06:36 BUN/Creatinine Ratio 17.1 (14-18) 07/06/19 06:36 Glucose 133 mg/dL (83-115) H 07/06/19 06:36 Lactic Acid 1.0 mmol/L (0.4-2.0) 07/06/19 07:30 Calcium 8.6 mg/dL (8.5-10.1) 07/06/19 06:36 Total Bilirubin 0.8 mg/dL (0.2-1.0) 07/06/19 06:36 AST 15 U/L (15-37) 07/06/19 06:36 ALT 20 U/L (16-63) 07/06/19 06:36 Alkaline Phosphatase 88 U/L (46-116) 07/06/19 06:36 C-Reactive Protein 16.9 mg/dL (<1.0) H* 07/06/19 06:36 Total Protein 7.3 g/dl (6.4-8.2) 07/06/19 06:36 Albumin 3.5 g/dl (3.4-5.0) 07/06/19 06:36 Globulin 3.8 gm/dL 07/06/19 06:36 Albumin/Globulin Ratio 0.9 (1-2) L 07/06/19 06:36 Lipase 88 U/L (73-393) 07/06/19 06:36 Urine Color Yellow (Yellow) 07/06/19 05:52 Urine Appearance Clear (Clear) 07/06/19 05:52 Urine pH 6.0 (5.0-8.0) 07/06/19 05:52 Ur Specific [place] 1.025 (1.005-1.030) 07/06/19 05:52 Urine Protein 1+ (Negative) H 07/06/19 05:52 Urine Glucose (UA) Negative (Negative) 07/06/19 05:52 Urine Ketones Trace (Negative) H 07/06/19 05:52 Urine Occult Blood Negative (Negative) 07/06/19 05:52 Urine Nitrite Negative (Negative) 07/06/19 05:52 Urine Bilirubin 1+ (Negative) H 07/06/19 05:52 Urine Urobilinogen 0.2 (0.2-1.0) 07/06/19 05:52 Ur Leukocyte Esterase Negative (Negative) 07/06/19 05:52 Urine RBC 0-5 /hpf (0-5) 07/06/19 05:52 Urine WBC 0-5 /hpf (0-5) 07/06/19 05:52 Ur Squamous Epith Cells 0-5 /hpf (0-5) 07/06/19 05:52 Amorphous Sediment Rare /hpf (NOT SEEN) H 07/06/19 05:52 Urine Bacteria Few /hpf (FEW) 07/06/19 05:52 Urine Mucus Not seen /hpf (FEW) 07/06/19 05:52 Above labs reviewed and noted and within acceptable ranges to proceed with scheduled procedure. - Imaging/EKG Impressions: EKG: - Allergies Allergies/Adverse Reactions: Allergies Allergy/AdvReac Type Severity Reaction Status Date / Time No Known Allergies Allergy Verified 07/06/19 05:32 - Anesthesia Plan Pre-Op Medication Ordered: None - Acknowledgements Anesthesia Type Planned: General Anesthesia Pt an Appropriate Candidate for the Planned Anesthesia: Yes Alternatives and Risks of Anesthesia Discussed w Pt/Guardian: Yes Pt/Guardian Understands and Agrees with Anesthesia Plan: Yes PreAnesthesia Questionnaire - Past Health History Medical/Surgical History: Denies Medical/Surgical History Genitourinary History: Reports: BPH, Retention, Urinary Other Genitourinary History: Patient has had some form of urological procedure called a lift procedure. It appears to be some form procedure around the prostatic urethra without doing a TURP. - SUBSTANCE USE Smoking Status *Q: Current Every Day Smoker Tobacco Use Within Last Twelve Months: Cigarettes Recreational Drug Use History: No - HOME MEDS Home Medications: Home Meds Diclofenac Sodium [Diclofenac Sodium ER] 75 mg PO BID PRN 07/06/19 [History] - CURRENT (IN HOUSE) MEDS Current Meds: Current Medications Dextrose/Sodium Chloride (Dextrose 5%-Normal Saline) 1,000 mls @ 150 mls/hr IV ASDIRECTED [facility] Last Admin: 07/06/19 06:33 Dose: 150 mls/hr Sodium Chloride (Normal Saline) 100 mls @ 75 mls/hr IV ASDIRECTED [facility] Last Admin: 07/06/19 08:14 Dose: 75 mls/hr Sodium Chloride (Saline Flush) 10 ml FLUSH ONETIME PRN PRN Reason: IV FLUSH Last Admin: 07/06/19 08:14 Dose: 10 ml Discontinued Medications Diatrizoate Meglum/Diatrizoate Sod (Gastrografin 37%) 120 ml PO ONETIME ONE Stop: 07/06/19 07:10 Hydromorphone HCl (Dilaudid) 0.5 mg IVPUSH ONETIME ONE Stop: 07/06/19 06:11 Last Admin: 07/06/19 06:34 Dose: 0.5 mg Hydromorphone HCl (Dilaudid) 0.5 mg IVPUSH ONETIME ONE Stop: 07/06/19 08:51 Last Admin: 07/06/19 09:07 Dose: 0.5 mg Meropenem 1 gm/ Sodium (Chloride) 100 mls @ 200 mls/hr IV ONETIME ONE Stop: 07/06/19 07:39 Last Admin: 07/06/19 08:28 Dose: 200 mls/hr Iopamidol (Isovue-300 (61%)) 100 ml IVPUSH ONETIME ONE Stop: 07/06/19 07:10 Last Admin: 07/06/19 08:13 Dose: 100 ml Levofloxacin (Levaquin) 500 mg PO ONETIME ONE Stop: 07/06/19 05:40 Last Admin: 07/06/19 05:43 Dose: 500 mg Lidocaine HCl (Xylocaine 2% Jelly) 10 ml MUCMEM ONETIME ONE Stop: 07/06/19 05:39 Last Admin: 07/06/19 05:43 Dose: 10 ml Lidocaine HCl (Xylocaine 2% Jelly) 10 ml MUCMEM ONETIME ONE Stop: 07/06/19 05:42 Meropenem (Merrem) Confirm Administered Dose 1 gm .ROUTE .STK-MED ONE Stop: 07/06/19 07:35 Last Admin: 07/06/19 08:57 Dose: Not Given Ondansetron HCl (Zofran) 4 mg IVPUSH ONETIME ONE Stop: 07/06/19 06:12 Last Admin: 07/06/19 06:34 Dose: 4 mg
--- NOTE | 2019-07-06 11:48 | CR ---
Chest: Portable view of the chest was obtained. Comparison: Prior chest x-ray of 07/08/12. Slightly lobulated right hemidiaphragm is seen. Poor inspiratory study is noted. Heart size and mediastinum are within normal limits for portable technique. Lungs show no acute parenchymal change. Impression: 1. Findings as noted above. 2. Nothing acute is appreciated on portable chest x-ray. Diagnostic code #2
--- NOTE | 2019-07-06 12:29 | PCM.SN ---
- Free Text/Narrative Note: Called to evaluate Néstor in Preop holding. He appeared in distress on arrival. Néstor was short of breath and complaining of pain. He does have a 2 ppd for 50 years smoking history. His face was red and his nose and lips were purple. His did state this is his usual color. I increased his nasal cannula to 6L flow. His SpO2 increased to 88%. Dr. Etienne was called to the bedside. 50 mcg of IV Fentanyl was given for pain. He had received a nebulizer treatment earlier today. His Sp02 declined to 70% and face mask with 15L flow was applied with chin lift. ABG was requested earlier, but currently the ABG machine is not working. I spoke with Dr. Etienne regarding pulmonary function and the high probability of needing post operative ventilation and pulmonary management. Néstor has course lung sounds in his upper lobes with poor exchange noted in both bases. Dr. Etienne spoke with Dr. Solomon in the ER. Néstor will return to the ER for transfer per Dr. Etienne's request.
--- NOTE | 2019-07-07 08:47 | HP ---
DATE OF ADMISSION: 07/06/2019 ADMITTING DIAGNOSIS: Acute appendicitis. HISTORY OF PRESENT ILLNESS: The patient is a 69-year-old male with a 1-1/2-day history of difficulty urinating. He has a history of urinary retention. He had a Urostat placed in his prostate a little shy of 2 years ago. His urinary retention has resolved. He was also on Flomax for about 5 years. This is no longer on board. About a day and a half ago, it started paining, complaining of difficulty urinating with abdominal bloating. He was able to urinate a little bit. His pain persisted dispite Urinating. He thought this may be related to urinary retention. He said that he could no longer tolerate the pain and showed up this morning around 4:00 in the morning. His pain has settled in the right lower quadrant and suprapubic region. He denies any shaking chills, fever, nausea, vomiting, diarrhea, or any other concerning symptom aside from that listed above. He has a Brand in place. He underwent a CT when the Brand failed to relieve his discomfort. CT showed an enlarged appendix with periappendiceal fat stranding. I was called to evaluate. PAST MEDICAL HISTORY: Arthritis in bilateral knees, prostatic hypertrophy. MEDICATIONS AT HOME: Celebrex, he does not know the dose of his Celebrex. ALLERGIES TO MEDICATIONS: None. PAST SURGICAL HISTORY: He has had a colonoscopy and a Urostat procedure for urinary obstruction. SOCIAL HISTORY: He lives with his . He is a 100 Pack-year smoker and formerheavy alcohol abuser, but has not had a drink for 5 years. Denies illicit drugs. FAMILY HISTORY: Notable for diabetes mellitus and Parkinson disease and colon cancer in a first cousin. REVIEW OF SYSTEMS: He has had a colonoscopy x2. With a history of polyps, he is referred for another colonoscopy in 10 years, which will be 9 years from now. He reports some unsteadiness on his feet with a history of occasional falls. The remainder of his 10-system review is negative. He is able to give a good history. PHYSICAL EXAMINATION: GENERAL: He is in obvious painful distress. But does not appear toxic. VITALS: Temperature 98.1, pulse 99, respirations 20, blood pressure 143/76, saturating 90% on room air. HEAD AND NECK: Normocephalic, atraumatic. His neck is supple, full range of motion. LUNGS: Clear to auscultation bilaterally. No respiratory distress. HEART: Regular rate and rhythm. No clicks, murmurs, or rubs. ABDOMEN: Soft. He is distended. He has a resonant note to percussion. He has exquisite tenderness in the right lower quadrant with a positive Rovsing sign. He has guarding in the right lower quadrant. EXTREMITIES: No clubbing, cyanosis, or edema. No calf tenderness. INTEGUMENT: No rashes. No lesions. No petechiae. No jaundice. NEUROLOGIC: His cranial nerves are grossly intact and nonfocal. His sensation and movement are preserved in all 4 extremities. Linear thinking. Psychiatric: He has appropriate affect and demeanor. No confusion. LABORATORY DATA: His labs showed a leukocytosis of 22,000 with a left shift. INR is 1.09. Chemistries: BUN 24, creatinine 1.4, glucose 133. The remainder of his chemistries are unremarkable. C-reactive protein 16.9. Urine is unremarkable. RADIOGRAPHIC STUDIES: CT scan demonstrated an enlarged appendix with a lot of periappendiceal fat stranding as well as other incidental findings. ASSESSMENT: Acute appendicitis with periappendiceal fat stranding consistent with acute appendicitis. I suspect contained perforation. PLAN: He will get a dose of preoperative antibiotics. Assuming it is an isolated appendicitis with no generalized peritonitis, he will go home in the next 24 hours. If he has a large amount of peritonitis, he will probably stay here until his white count resolves. I will keep the Brand in until postoperatively when his pain is manageable, and because he has a high risk of urinary retention, we will make sure his pain is well controlled before trying to remove the catheter. He was fully informed of the major risks, benefits, and alternatives. These include, but are not limited to, injury to bowel, injury to any abdominal structure, bleeding, abscess formation, recurrent surgery, hernias of the port sites, conversion to open, and many others related to his advanced age and smoking historyl. He gave informed consent. We will get him to the operating room as soon as a room is available. LUCIE /[id number]
--- NOTE | 2019-07-07 08:58 | HP ---
DATE OF ADMISSION: 07/07/2019 ADDENDUM: In the intervening time since I saw the patient in the ED, he was moved over to the preop holding area. He appears more confused now. His oxygen saturation has dropped and he is becoming more tachypneic. It has become clear that his [id number] history is catching up to him. We had to put a face mask on him with 10 L of oxygen to improve his oxygen saturation. He appears at this point to be going into respiratory failure. His abdomen still does not have a generalized tenderness. He does not appear to have generalized peritonitis. He has a soft abdomen, it is certainly nonrigid, although he does have a bit of a resonant note to percussion. It seems he probably is developing an ileus which is not helping his respiratory function. We have opted to send him to a higher level of care. He certainly will be on a vent postoperatively perhaps for several days. He will need a underground truck operator and may need bronchoscopy as well. These are services that are not currently available at this hospital. He has already received a dose of meropenem. His lungs are certainly a greater risk to his life currently than his appendicitis, so we will put him in an ambulance and send him down to [facility] in [place] and that is the expressed wish of his . He is stable for transport. LUCIE /[id number]
== END ==
LOC: JD.ED 04:58 → JD.SDS 09:22
PROVIDERS: ATTEND Surgery
DX: K35.80 Unspecified acute appendicitis (principal); R06.02 Shortness of breath; F17.210 Nicotine dependence, cigarettes, uncomplicated; M17.0 Bilateral primary osteoarthritis of knee; N40.0 Benign prostatic hyperplasia without lower urinary tract symptoms; Z53.09 Procedure and treatment not carried out because of other contraindication
CPT/HCPCS: 36415; 51702; 51798; 71045; 74018; 74177; 80053; 81001; 83605; 83690; 85007; 85027; 85610; 86140; 87040; 93005; 94640; 96361; 96365; 96375; 96376; 99285; A9270; J1170; J2185; J2405; J3010; J7030; J7042; Q9963; Q9967; J1100; J2001; J2250; J2704; J3490

== ENCOUNTER 2019-07-25 10:02 | Emergency (ER) | payer MEDICARE, OTHER ==
--- NOTE | 2019-07-25 10:14 | EDM.PDOC ---
ED HPI GENERAL MEDICAL PROBLEM - General Chief Complaint: Neuro Symptoms/Deficits Stated Complaint: STROKE SYMPTOMS Time Seen by Provider: 07/25/19 10:06 Source of Information: Reports: Patient, RN Notes Reviewed - History of Present Illness INITIAL COMMENTS - FREE TEXT/NARRATIVE: 69-year-old male comes in with speech difficulty. This started about 45 minutes prior to arrival. Last known well was about 9:15 AM today. He was doing well earlier this morning with no unusual symptoms. He experienced sudden onset of "being unable to speak clearly. When his found him shortly after this started she states his speech was "not clear, slow, hard to get the words out", could kind of make out what he was trying to say but words were very unclear. His son helped him out to their vehicle and he states that he felt like he had "lost feeling in his legs and that "both legs were "dragging". His did not notice any facial droop. He had no weakness or, dizziness of his upper extremities. No paresthesias of his head face or upper extremities. No visual difficulty. He has never had anything of this nature before. He did come here to the ED by private vehicle. This was called a stroke alert and I did see patient within a few minutes of arrival to the ED. - Related Data Allergies Allergy/AdvReac Type Severity Reaction Status Date / Time No Known Allergies Allergy Verified 07/25/19 10:13 Home Meds: Home Meds Diclofenac Sodium [Diclofenac Sodium ER] 75 mg PO BID PRN 07/06/19 [History] Albuterol Sulfate [Albuterol Sulfate Hfa] 2 puff IH QID 07/25/19 [History] Fluticasone/Umeclidin/Vilanter [Trelegy Ellipta 100-62.5-25 MCG] 1 puff INH DAILY 07/25/19 [History] Nicotine [Nicotine Patch] 42 mg TD DAILY 07/25/19 [History] buPROPion [Wellbutrin SR] 150 mg PO BID 07/25/19 [History] Past Medical History - Past Health History Medical/Surgical History: Denies Medical/Surgical History Genitourinary History: Reports: BPH, Retention, Urinary Other Genitourinary History: Patient has had some form of urological procedure called a lift procedure. It appears to be some form procedure around the prostatic urethra without doing a TURP. Social & Family History - Living Situation & Occupation Living situation: Reports: Occupation: Retired ED ROS GENERAL - Review of Systems Review Of Systems: See Below Constitutional: Denies: Fever, Chills, Diaphoresis HEENT: Denies: Ear Pain, Throat Pain, Vertigo, Vision Change Respiratory: Denies: Shortness of Breath Cardiovascular: Denies: Chest Pain GI/Abdominal: Denies: Abdominal Pain, Nausea, Vomiting ED EXAM, NEURO - Physical Exam Exam: See Below General Appearance: Alert, Anxious (Mild) Eye Exam: Bilateral Eye: PERRL Throat/Mouth: Normal Inspection, Normal Oropharynx Head Exam: Atraumatic. No: Facial Swelling Neck: Supple, Full Range of Motion Respiratory/Chest: No Respiratory Distress, Lungs Clear, Normal Breath Sounds Cardiovascular: Regular Rate, Rhythm GI/Abdominal: Soft, Non-Tender Neurological: Alert, Normal Mood/Affect, No Motor/Sensory Deficits (Very mild ataxia with [id number] testing at time of initial exam, no focal weakness upper or lower extremities, no facial droop, very mild speech difficulty speech is mildly slurred and he does seem to have some mild word finding difficulty at time of initial exam), Oriented x 3, Other (speech mildly slow at time of initial exam but words are clear, appropriate and easy to understand, answers questions appropriately) Extremities: Normal Inspection, Normal Range of Motion Skin Exam: Warm, Dry, Normal Color EKG INTERPRETATION EKG Date: 07/25/19 Rhythm: NSR Celestine: Normal P-Wave: Present QRS: Normal ST-T: Normal Course - Vital Signs Last Recorded V/S: Last Vital Signs Temp 98.5 F 07/25/19 10:07 Pulse 76 07/25/19 10:07 Resp 18 07/25/19 10:07 BP 140/76 07/25/19 10:07 Pulse Ox 100 07/25/19 10:07 - Orders/Labs/Meds Labs: Laboratory Tests 07/25/19 07/25/19 07/25/19 Range/Units 10:20 10:20 10: WBC 8.87 (4.23-9.07) K/mm3 RBC 5.38 (4.63-6.08) M/mm3 Hgb 13.5 L (13.7-17.5) gm/dl Hct 41.9 (40.1-51.0) % MCV 77.9 L (79.0-92.2) fl MCH 25.1 L (25.7-32.2) pg MCHC 32.2 (32.2-35.5) g/dl RDW Std Deviation 52.2 H (35.1-43.9) fL Plt Count 332 (163-337) K/mm3 MPV 9.9 (9.4-12.3) fl Neut % (Auto) 55.2 (34.0-67.9) % Lymph % (Auto) 34.4 (21.8-53.1) % [place] % (Auto) 9.7 (5.3-12.2) % Eos % (Auto) 0.3 L (0.8-7.0) Baso % (Auto) 0.1 (0.1-1.2) % Neut # (Auto) 4.89 (1.78-5.38) K/mm3 Lymph # (Auto) 3.05 (1.32-3.57) K/mm3 [place] # (Auto) 0.86 H (0.30-0.82) K/mm3 Eos # (Auto) 0.03 L (0.04-0.54) K/mm3 Baso # (Auto) 0.01 (0.01-0.08) K/mm3 Sodium 140 (136-145) mEq/L Potassium 4.5 (3.5-5.1) mEq/L Chloride 105 (98-107) mEq/L Carbon Dioxide 26 (21-32) mEq/L Anion Gap 13.5 (5-15) BUN 17 (7-18) mg/dL Creatinine 1.6 H (0.7-1.3) mg/dL Est Cr Clr Drug Dosing 45.10 mL/min Estimated GFR (MDRD) 43 (>60) mL/min BUN/Creatinine Ratio 10.6 L (14-18) Glucose 97 (83-115) mg/dL Hemoglobin A1c (4.50-6.20) % Calcium 8.8 (8.5-10.1) mg/dL Total Bilirubin 0.4 (0.2-1.0) mg/dL AST 14 L (15-37) U/L ALT 31 (16-63) U/L Alkaline Phosphatase 89 (46-116) U/L Total Protein 7.1 (6.4-8.2) g/dl Albumin 2.9 L (3.4-5.0) g/dl Globulin 4.2 gm/dL Albumin/Globulin Ratio 0.7 L (1-2) Triglycerides 93 (<150) mg/dL Cholesterol 154 (<200) mg/dL LDL Cholesterol Direct 106 H* (<100) mg/dL HDL Cholesterol 28.0 L (40-59) mg/dL 07/25/19 Range/Units 10:29 WBC (4.23-9.07) K/mm3 RBC (4.63-6.08) M/mm3 Hgb (13.7-17.5) gm/dl Hct (40.1-51.0) % MCV (79.0-92.2) fl MCH (25.7-32.2) pg MCHC (32.2-35.5) g/dl RDW Std Deviation (35.1-43.9) fL Plt Count (163-337) K/mm3 MPV (9.4-12.3) fl Neut % (Auto) (34.0-67.9) % Lymph % (Auto) (21.8-53.1) % [place] % (Auto) (5.3-12.2) % Eos % (Auto) (0.8-7.0) Baso % (Auto) (0.1-1.2) % Neut # (Auto) (1.78-5.38) K/mm3 Lymph # (Auto) (1.32-3.57) K/mm3 [place] # (Auto) (0.30-0.82) K/mm3 Eos # (Auto) (0.04-0.54) K/mm3 Baso # (Auto) (0.01-0.08) K/mm3 Sodium (136-145) mEq/L Potassium (3.5-5.1) mEq/L Chloride (98-107) mEq/L Carbon Dioxide (21-32) mEq/L Anion Gap (5-15) BUN (7-18) mg/dL Creatinine (0.7-1.3) mg/dL Est Cr Clr Drug Dosing mL/min Estimated GFR (MDRD) (>60) mL/min BUN/Creatinine Ratio (14-18) Glucose (83-115) mg/dL Hemoglobin A1c 6.00 (4.50-6.20) % Calcium (8.5-10.1) mg/dL Total Bilirubin (0.2-1.0) mg/dL AST (15-37) U/L ALT (16-63) U/L Alkaline Phosphatase (46-116) U/L Total Protein (6.4-8.2) g/dl Albumin (3.4-5.0) g/dl Globulin gm/dL Albumin/Globulin Ratio (1-2) Triglycerides (<150) mg/dL Cholesterol (<200) mg/dL LDL Cholesterol Direct (<100) mg/dL HDL Cholesterol (40-59) mg/dL Meds: Medications Discontinued Medications Generic Name Dose Route Start Last Admin Trade Name Freq PRN Reason Stop Dose Admin Aspirin 324 mg 07/25/19 11:09 07/25/19 11:26 Aspirin PO 07/25/19 11:10 324 mg ONETIME ONE Administration Gadobenate Dimeglumine 20 ml 07/25/19 11:35 07/25/19 12:30 Multihance IVPUSH 07/25/19 11:36 20 ml ONETIME ONE Administration Sodium Chloride 1,000 mls @ 150 mls/hr 07/25/19 10:15 07/25/19 11:36 Normal Saline IV 999 mls/hr ASDIRECTED KARLA Infusion Lactated Ringer's 1,000 mls @ 999 mls/hr 07/25/19 13:06 07/25/19 13:35 Ringers, Lactated IV 07/25/19 14:06 999 mls/hr .BOLUS ONE Administration Sodium Chloride 1,000 mls @ 999 mls/hr 07/25/19 15:40 07/25/19 15:45 Normal Saline IV 07/25/19 16:40 999 mls/hr ONETIME ONE Administration Sodium Chloride 10 ml 07/25/19 10:13 07/25/19 10:28 Saline Flush FLUSH 10 ml ASDIRECTED PRN Administration Keep Vein Open Sodium Chloride 30 ml 07/25/19 11:45 07/25/19 12:30 Saline Flush FLUSH 30 ml ASDIRECTED KARLA Administration - Re-Assessments/Exams Free Text/Narrative Re-Assessment/Exam: 07/25/19 13:38 CT of head does show some mild diffuse atrophy somewhat prominent for age. No acute hemorrhage or other acute findings. At time of repeat exam about 2 hours ago, 20-30 minutes after arrival his speech had improved to where it was about back to normal. I have rechecked him multiple times since then and his speech now is clearly back to normal. He is now not showing any word finding difficulties or pronunciation difficulty. He continues to have no focal weakness. Were able to get MR a of his head and neck fairly quickly after arrival and also MRI of head so that all has been done and did not show any acute findings, see radiology reports for details. 07/25/19 14:12. Have discussed this with Dr Head, Neurologist instructional technology facilitator for [facility], He is somewhat skeptical that this was a true TIA with no obvious motor deficit although it sounds like he did have more difficulty walking out to the car than baseline. He does advise that we get him scheduled for echocardiogram, check lipids and A1C, start on daily aspirin which has already been given. 15:10. Continues to have no speech difficulty, discharge instr. as documented. Departure - Departure Time of Disposition: 14:06 Disposition: Home, Self-Care 01 Condition: Fair Clinical Impression: TIA (transient ischemic attack), Speech difficult to understand - Discharge Information Instructions: Transient Ischemic Attack, [id number] Referrals: Rico Barr MD [Primary Care Provider] - Forms: ED Department Discharge Additional Instructions: Continue to not smoke. Aspirin 324 mg daily for now. You have been given your dose for today here in the emergency department. Echocardiogram tomorrow morning 10:00 here at this hospital. Arrive at least 15 minutes early for that appointment. Drink plenty of water to maintain hydration. Our lab work today shows that your kidneys are somewhat weak. If you are not voiding or making adequate amounts of urine over the next several days return to the ED for further evaluation. See Dr. Foster next August 01 at 3:15. Return to ED if symptoms worsening in any way.
[2019-07-25] MEDS: Sodium Chloride 0.9% 10 ML Syringe FLUSH PRN (10:28)
[2019-07-25] MEDS: Sodium Chloride 0.9% 1,000 ML IV SCH (10:29)
[2019-07-25] MEDS: Aspirin 81 MG Tab.Chew PO ONE (11:26)
[2019-07-25] MEDS: Sodium Chloride 0.9% 10 ML Syringe FLUSH SCH (12:30)
[2019-07-25] MEDS: Gadobenate Dimeglumine 529 MG/ML 20 ML SDV IVPUSH ONE (12:30)
--- NOTE | 2019-07-25 12:42 | MR ---
MR angiogram of brain Technique: [id number] MR angiogram study was obtained centered to the [place]. Multiple MIPS images were obtained. Findings: Distal internal carotid arteries as well as middle and anterior cerebral arteries appear patent. Basilar artery is patent. Proximal posterior cerebral arteries are patent. No focal occlusion or focal stenosis is seen. No discrete aneurysm is appreciated. Impression: 1. No abnormality is seen on MR angiogram studies centered to the [place]. Diagnostic code #1
--- NOTE | 2019-07-25 13:08 | MR ---
MR angiogram of neck Technique: Post-contrast MR angiogram study was obtained of the neck. Multiple minute images were obtained. Findings: Common carotid arteries appear within normal limits. Slight atheromatous irregularity seen within the left carotid and right carotid bulb. No focal stenosis is seen within either carotid bulb. Internal carotid arteries are patent. Dominant left vertebral artery is seen. Diminutive size of the distal right vertebral artery is noted. Basilar artery is mostly supplied by the dominant left vertebral artery. Impression: 1. Diminutive size of the distal right vertebral artery. As mentioned above, basilar artery is supplied mostly by the dominant left vertebral artery. 2. Minimal atheromatous irregularity within the carotid bulbs. 3. MR angiogram study of the neck is otherwise unremarkable. Diagnostic code #2
--- NOTE | 2019-07-25 13:08 | MR ---
MRI brain (without and with intravenous contrast) Technique: T1 sagittal; T2, T2 FLAIR, T1 and diffusion axial; T2 gradient echo and T1 weighted coronal; post-contrast T1 axial and post-contrast T1 FLAIR coronal images were obtained. Findings: Ventricles along with basal cisterns and sulci over the convexities are moderately prominent. No abnormal signal is seen within the brain parenchyma. No midline shift or mass effect is seen. No acute diffusion abnormalities are seen. No areas of abnormal enhancement are seen within the brain parenchyma. Old lacunar infarct is noted within the left basal ganglia. Retention cyst is noted within the right maxillary sinus measuring 2.1 cm. Impression: 1. Generalized atrophy with old lacunar infarct within the left basal ganglia. 2. No other abnormal signal is seen within the brain parenchyma. No acute diffusion abnormalities or abnormal enhancement is seen. 3. 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 Diagnostic code #2
--- NOTE | 2019-07-25 13:08 | CT ---
Head CT Technique: Multiple axial sections through the brain were obtained. Intravenous contrast was not utilized. Comparison: No prior intracranial imaging is available. Findings: Ventricles along with basal cisterns and sulci over the convexities are moderately prominent. Old lacunar infarcts are seen within the basal ganglia. Very minimal areas of diminished density is noted within the periventricular white matter compatible with slight small vessel ischemic demyelination change. No other abnormal parenchymal densities are seen. No evidence of intracranial hemorrhage. No midline shift or mass effect is seen. Bone window settings were reviewed which shows no acute calvarial abnormality. Visualized paranasal sinuses show nothing acute. Visualized mastoid sinuses are clear. Impression: 1. Senescent change as noted above. 2. No acute intracranial abnormality is appreciated. Diagnostic code #2
[2019-07-25] MEDS: Lactated Ringers 1,000 ML IV ONE (13:35)
[2019-07-25] MEDS: Sodium Chloride 0.9% 1,000 ML IV ONE (15:45)
== END 2019-07-25 16:55 | disposition home or self-care (01) ==
LOC: JD.ED 10:02
DX: G45.9 Transient cerebral ischemic attack, unspecified (principal); Z79.899 Other long term (current) drug therapy
CPT/HCPCS: 36415; 70450; 70544; 70548; 70553; 80053; 80061; 83036; 85025; 93005; 96360; 96361; 99285; A9270; A9577; J7040; J7120; 93010; 99284

== ENCOUNTER 2019-12-30 18:15 | Emergency (ER) | payer MEDICARE, OTHER ==
--- NOTE | 2019-12-30 18:39 | EDM.PDOC ---
ED HPI GENERAL MEDICAL PROBLEM - General Chief Complaint: Laceration Stated Complaint: HEAD LAC Time Seen by Provider: 12/30/19 18:33 Source of Information: Reports: Patient History Limitations: Reports: No Limitations ( ) - History of Present Illness INITIAL COMMENTS - FREE TEXT/NARRATIVE: Patient is a 69-year-old male who presents to the ER with complaints of a laceration to his head. Patient states he fell backward and hit his head on a cabinet. There was no loss of consciousness. He has had no dizziness or blurred vision. Denies a headache. Patient is not on blood thinners. He is unsure when his last tetanus shot was, however states it is likely been more than 10 years. - Related Data Allergies Allergy/AdvReac Type Severity Reaction Status Date / Time Metals Allergy Rash Uncoded 12/30/19 18:35 Home Meds: Home Meds Diclofenac Sodium [Diclofenac Sodium ER] 75 mg PO BID PRN 07/06/19 [History] Albuterol Sulfate [Albuterol Sulfate Hfa] 2 puff IH QID 07/25/19 [History] Fluticasone/Umeclidin/Vilanter [Trelegy Ellipta 100-62.5-25 MCG] 1 puff INH DAILY 07/25/19 [History] Nicotine [Nicotine Patch] 42 mg TD DAILY 07/25/19 [History] buPROPion [Wellbutrin SR] 150 mg PO BID 07/25/19 [History] Past Medical History - Past Health History Medical/Surgical History: Denies Medical/Surgical History Genitourinary History: Reports: BPH, Retention, Urinary Other Genitourinary History: Patient has had some form of urological procedure called a lift procedure. It appears to be some form procedure around the prostatic urethra without doing a TURP. - Past Surgical History GI Surgical History: Reports: Appendectomy Social & Family History - Tobacco Use Smoking Status *Q: Former Smoker Used Tobacco, but Quit: Yes Month/Year Tobacco Last Used: 06/2019 - Caffeine Use Caffeine Use: Reports: Coffee - Recreational Drug Use Recreational Drug Use: No - Living Situation & Occupation Living situation: Reports: Occupation: Retired ED ROS GENERAL - Review of Systems Review Of Systems: Comprehensive ROS is negative, except as noted in HPI. ED EXAM, SKIN/RASH Exam: See Below Exam Limited By: No Limitations General Appearance: Alert, WD/WN, No Apparent Distress Eye Exam: Bilateral Eye: Normal Inspection, PERRL Head: Normocephalic, Other (2 cm laceration to the right occipital area.) Respiratory/Chest: No Respiratory Distress, Lungs Clear, Normal Breath Sounds, No Accessory Muscle Use, Chest Non-Tender Cardiovascular: Normal Peripheral Pulses, Regular Rate, Rhythm, No Edema, No Gallop, No JVD, No Murmur, No Rub Neurological: Alert, Oriented, CN II-XII Intact, Normal Cognition, Normal Gait, Normal Reflexes, No Motor/Sensory Deficits Psychiatric: Normal Affect, Normal Mood ED SKIN PROCEDURES - Laceration/Wound Repair Right Posterior Head Appearance: Subcutaneous Skin Prep: Chlorhexidine (Hibiciens), Saline Exploration/Debridement/Repair: Wound Explored, In a Bloodless Field Closed with: Vladimir Lac/Wound length In cm: 2 (closed with 3 vladimir) Progress/Comments: 2 cm laceration to the posterior head closed with 3 vladimir. Patient opted to not use analgesia. Patient tolerated well. Course - Vital Signs Last Recorded V/S: Last Vital Signs Temp 97.5 F 12/30/19 18:33 Pulse 78 12/30/19 18:33 Resp 16 12/30/19 18:33 BP 157/87 H 12/30/19 18:33 Pulse Ox 96 12/30/19 18:33 - Orders/Labs/Meds Orders: Active Orders 24 hr Category Date Time Status Influenza Vaccine Charge [RC] .DISCHARGE Care 12/30/19 18:39 Active Vaccines to be Administered [RC] PER UNIT ROUTINE Care 12/30/19 18:40 Active Pharmacy to Dose - InFluenza V [Pharmacy to Dose - Med 12/30/19 18:39 Pending InFluenza Vaccine] 1 each IM ONETIME ONE Medication Orders Influenza Virus Vaccine (Pharmacy To Dose - Influenza Vaccine) 1 each IM ONETIME ONE Stop: 12/30/19 18:40 Meds: Medications Generic Name Dose Route Start Last Admin Trade Name Freq PRN Reason Stop Dose Admin Influenza Virus Vaccine 1 each 12/30/19 18:39 Pharmacy To Dose - Influenza Vaccine IM 12/30/19 18:40 ONETIME ONE Discontinued Medications Generic Name Dose Route Start Last Admin Trade Name Freq PRN Reason Stop Dose Admin Diphtheria/Tetanus/Acell Pertussis 0.5 ml 12/30/19 18:40 Adacel IM 12/30/19 18:41 .ONCE ONE Influenza Virus Vaccine 180 mcg 12/30/19 18:45 Fluzone High-Dose 2019-20 Syringe IM 12/30/19 18:46 .ONCE ONE Departure - Departure Time of Disposition: 19:02 Disposition: Home, Self-Care 01 Condition: Fair Clinical Impression: Laceration of head Qualifiers: Encounter type: initial encounter Location of open wound of head: scalp Foreign body presence: without foreign body Qualified Code(s): S01.01XA - Laceration without foreign body of scalp, initial encounter - Discharge Information *PRESCRIPTION DRUG MONITORING PROGRAM REVIEWED*: No *COPY OF PRESCRIPTION DRUG MONITORING REPORT IN PATIENT CARIN: No Instructions: Sutures, Vladimir, or Adhesive Wound Closure, [id number] Referrals: Rico Barr MD [Primary Care Provider] - Forms: ED Department Discharge Additional Instructions: You were seen in the emergency department today for a 2 cm laceration to your posterior head. The wound was cleansed and closed with 3 vladimir. These should remain intact for 7 days. After that time, you may have them removed in the clinic by a nurse. Keep the wound clean with normal soap and water. Watch for signs of infection including increased redness, swelling, or purulent drainage. You did receive a flu vaccination today, as well as a tetanus vaccination. Your tetanus is up-to-date for 10 years from today. Return to the ER as needed. Sepsis Event Note - Evaluation Sepsis Screening Result: No Definite Risk - Focused Exam Vital Signs: Vital Signs Temp Pulse Resp BP Pulse Ox 12/30/19 18:33 97.5 F 78 16 157/87 H 96 Date Exam was Performed: 12/30/19 Time Exam was Performed: 19:00 - My Orders Last 24 Hours: My Active Orders 12/30/19 18:39 Influenza Vaccine Charge [RC] .DISCHARGE Pharmacy to Dose - InFluenza V [Pharmacy to Dose - InFluenza Vaccine] 1 each IM ONETIME ONE 12/30/19 18:40 Vaccines to be Administered [RC] PER UNIT ROUTINE - Assessment/Plan Last 24 Hours: My Active Orders 12/30/19 18:39 Influenza Vaccine Charge [RC] .DISCHARGE Pharmacy to Dose - InFluenza V [Pharmacy to Dose - InFluenza Vaccine] 1 each IM ONETIME ONE 12/30/19 18:40 Vaccines to be Administered [RC] PER UNIT ROUTINE
[2019-12-30] MEDS ORDERED: Diphtheria,Pertussis(Acell),Tetanus Vaccine 0.5 ML Syringe IM ONE (18:40)
== END 2019-12-30 19:10 | disposition home or self-care (01) ==
LOC: JD.ED 18:15
DX: S01.01XA Laceration without foreign body of scalp, initial encounter (principal); Z23 Encounter for immunization; Z87.891 Personal history of nicotine dependence; Z79.899 Other long term (current) drug therapy; Z88.8 Allergy status to other drugs, medicaments and biological substances; W19.XXXA Unspecified fall, initial encounter
CPT/HCPCS: 12001; 90471; 90662; 90715; 99283; G0008; 99282

== ENCOUNTER 2023-12-06 20:05 | Emergency (ER) | payer MEDICARE, OTHER ==
[2023-12-06] MEDS: Dextrose 5%-0.9% NaCl 1,000 ML IV SCH (20:59)
[2023-12-06 21:05] LABS: BASOPHILS PERCENT AUTO 0.8 % (0.0-1.0); EOSINOPHILS PERCENT AUTO 0.2 % (0.0-6.0); HEMATOCRIT 44.2 % (42.0-52.0); HEMOGLOBIN 14.4 gm/dl (14.0-18.0); IMMATURE GRAN ABSOLUTE AUTO 0.02 K/mm3 (0.00-0.05); IMMATURE GRAN PERCENT AUTO 0.4 % (0.0-0.4); LYMPHOCYTES ABSOLUTE AUTO 1.1 K/mm3 (1.0-4.8); LYMPHOCYTES PERCENT AUTO 22.1 % (24.0-44.0); MEAN CORPUSCULAR HEMOGLOBIN 26.5 pg (28.0-32.0); MEAN CORPUSCULAR HGB CONC 32.6 g/dl (32.0-36.0); MEAN CORPUSCULAR VOLUME 81.4 fl (83.0-99.0); MEAN PLATELET VOLUME 10.3 fl (9.4-12.4); MONOCYTES ABSOLUTE AUTO 0.6 K/mm3 (0.0-0.8); MONOCYTES PERCENT AUTO 11.5 % (0.0-8.0); NEUTROPHILS ABSOLUTE AUTO 3.2 K/mm3 (1.8-7.7); PLATELET COUNT,PLT 134 K/mm3 (150-400); RED BLOOD CELL COUNT 5.43 M/mm3 (4.52-5.90); WHITE BLOOD CELL COUNT,WBC 4.94 K/mm3 (3.9-11.3)
[2023-12-06] MEDS: Albuterol/Ipratropium 3.0-0.5 MG/3 ML Neb Soln NEB PRN (21:17)
[2023-12-06 21:19] LABS: INR 1.07; PROTHROMBIN TIME 11.4 SECONDS (9.7-12.0)
[2023-12-06 21:30] LABS: ALBUMIN 3.8 g/dl (3.4-5.0); ANION GAP 16.1 (5-15); BILIRUBIN TOTAL 0.5 mg/dL (0.2-1.0); BUN/CREATININE RATIO 18.8 (14-18); C-REACTIVE PROTEIN 5.3 mg/dL (<0.30); CALCIUM 8.7 mg/dL (8.5-10.1); CREATININE 1.6 mg/dL (0.7-1.3); EST CRCL DRUG DOSING (CG) 43.78 mL/min; MAGNESIUM 1.9 mg/dL (1.8-2.4); POTASSIUM,K 4.1 mEq/L (3.5-5.1); PROTEIN TOTAL,TP 7.5 g/dl (6.4-8.2)
[2023-12-06 21:41] LABS: CORONAVIRUS COVID-19 NAA NEGATIVE (NEGATIVE); INFLUENZA A NAA NEGATIVE (NEGATIVE); RESPIRATORY SYNCYTIAL VIR NAA NEGATIVE (NEGATIVE)
[2023-12-06 21:49] LABS: SLIDE REVIEW ABNORMAL SMEAR
[2023-12-06 22:16] LABS: APPEARANCE,URINE SLT CLOUDY (Clear); BILIRUBIN,URINE NEGATIVE (Negative); COLOR,URINE YELLOW (Yellow); GLUCOSE,URINE NEGATIVE (Negative); KETONES,URINE NEGATIVE (Negative); LEUKOCYTE ESTERASE,URINE 1+ (Negative); NITRITE,URINE NEGATIVE (Negative); OCCULT BLOOD,URINE 2+ (Negative); PROTEIN,URINE 2+ (Negative); UROBILINOGEN,URINE 0.2 (0.2-1.0)
[2023-12-06 22:26] LABS: BARBITURATE SCREEN,URINE NEGATIVE (CUTOFF=200); BENZODIAZEPINES SCREEN,URINE NEGATIVE (CUTOFF=150); BUPRENORPHINE SCREEN,URINE NEGATIVE (CUTOFF=10); METHADONE SCREEN, URINE NEGATIVE (CUT0FF=200); METHAMPHETAMINES SCREEN, URINE NEGATIVE (CUTOFF=500); OXYCODONE SCREEN,URINE NEGATIVE (CUT0FF=100); RBC,URINE >100 /hpf (0-5); THC SCREEN,URINE 20 NG/ML NEGATIVE (CUTOFF=50); WBC,URINE 50-75 /hpf (0-5)
[2023-12-06 22:27] LABS: BACTERIA,URINE MODERATE /hpf (FEW); MUCUS,URINE MODERATE /hpf (FEW); SQUAMOUS EPITHELIAL CELLS,UR 0-5 /hpf (0-5)
[2023-12-06 22:30] LABS: AMPHETAMINES SCREEN, URINE NEGATIVE (CUTOFF=500)
[2023-12-07] MEDS: Levofloxacin/Dextrose 5%-Water 750 MG in Premix Bag 1 BAG IV ONE (05:37)
[2023-12-07] MEDS: Acetaminophen 325 MG Tab PO ONE (05:50)
[2023-12-07] MEDS: Dextrose 5%-0.9% NaCl 1,000 ML IV SCH (06:24)
[2023-12-07 06:34] LABS: BASOPHILS PERCENT AUTO 0.7 % (0.0-1.0); EOSINOPHILS PERCENT AUTO 0.2 % (0.0-6.0); HEMOGLOBIN 13.1 gm/dl (14.0-18.0); IMMATURE GRAN ABSOLUTE AUTO 0.02 K/mm3 (0.00-0.05); IMMATURE GRAN PERCENT AUTO 0.4 % (0.0-0.4); LYMPHOCYTES ABSOLUTE AUTO 1.5 K/mm3 (1.0-4.8); LYMPHOCYTES PERCENT AUTO 27.6 % (24.0-44.0); MEAN CORPUSCULAR HEMOGLOBIN 26.6 pg (28.0-32.0); MEAN CORPUSCULAR HGB CONC 32.8 g/dl (32.0-36.0); MEAN CORPUSCULAR VOLUME 81.1 fl (83.0-99.0); MEAN PLATELET VOLUME 10.3 fl (9.4-12.4); MONOCYTES ABSOLUTE AUTO 0.7 K/mm3 (0.0-0.8); MONOCYTES PERCENT AUTO 13.4 % (0.0-8.0); NEUTROPHILS ABSOLUTE AUTO 3.1 K/mm3 (1.8-7.7); NEUTROPHILS PERCENT AUTO 57.7 % (41.0-71.0); PLATELET COUNT,PLT 128 K/mm3 (150-400); RED BLOOD CELL COUNT 4.93 M/mm3 (4.52-5.90); WHITE BLOOD CELL COUNT,WBC 5.43 K/mm3 (3.9-11.3)
[2023-12-07 06:42] LABS: A/G RATIO 0.9 (1-2); ALBUMIN 3.3 g/dl (3.4-5.0); ANION GAP 14.8 (5-15); BILIRUBIN TOTAL 0.6 mg/dL (0.2-1.0); C-REACTIVE PROTEIN 4.82 mg/dL (<0.30); CALCIUM 8.2 mg/dL (8.5-10.1); CREATININE 1.3 mg/dL (0.7-1.3); EST CRCL DRUG DOSING (CG) 53.89 mL/min; POTASSIUM,K 3.8 mEq/L (3.5-5.1); PROTEIN TOTAL,TP 6.8 g/dl (6.4-8.2)
== END 2023-12-07 09:59 | disposition critical access hospital (66) ==
LOC: JD.ED 20:05
DX: B02.9 Zoster without complications (principal); N39.0 Urinary tract infection, site not specified; R41.0 Disorientation, unspecified; F17.210 Nicotine dependence, cigarettes, uncomplicated; Z90.49 Acquired absence of other specified parts of digestive tract; Z79.899 Other long term (current) drug therapy; Z91.048 Other nonmedicinal substance allergy status
CPT/HCPCS: 0241U; 36415; 70450; 70450-26; 71045; 71045-26; 80053; 80306; 81001; 83735; 83880; 84484; 85025; 85610; 85730; 86140; 87040; 87086; 93005; 93010; 94640; 96361; 96365; 96366; 99285; 99285-25; A9270-GY; J1956; J7042; J7620-GY

== ENCOUNTER 2023-12-07 10:49 | Inpatient (IN) | payer MEDICARE, OTHER ==
[2023-12-07] MEDS ORDERED: Ondansetron 4 MG/2 ML SDV IV PRN (12:35)
[2023-12-07] MEDS ORDERED: Ondansetron 4 MG Tab.DIS PO PRN (12:35)
[2023-12-07] MEDS ORDERED: Docusate Sodium 100 MG Cap PO PRN (12:35)
[2023-12-07] MEDS ORDERED: DICLOFENAC SODIUM 100 MG PO PRN (12:47)
[2023-12-07] MEDS ORDERED: Pregabalin 75 MG Cap PO PRN (12:48)
[2023-12-07] MEDS ORDERED: Non-Formulary Medication 1 Each (Albuterol Sulfate 8.5 GM Hfa.Aer.Ad) IH SCH (13:00)
[2023-12-07] MEDS: Acetaminophen 325 MG Tab PO PRN (14:57)
[2023-12-07] MEDS: cefTRIAXone 2 GM in Sodium Chloride 0.9% 100 ML IV SCH (14:57)
[2023-12-07] MEDS: Heparin Sodium 5,000 Units/ML Vial SUBCUT SCH (14:58)
[2023-12-07] MEDS: valACYclovir 1,000 MG Tab PO SCH (15:00)
[2023-12-07] MEDS: Albuterol 6.7 GM Inhaler INH SCH (15:16)
[2023-12-07] MEDS: Tamsulosin 0.4 MG Cap.ER PO SCH (15:23)
[2023-12-07] MEDS ORDERED: buPROPion 150 MG Tab.SR PO SCH (21:00)
[2023-12-08 06:05] LABS: BASOPHILS PERCENT AUTO 0.6 % (0.0-1.0); EOSINOPHILS PERCENT AUTO 0.4 % (0.0-6.0); HEMOGLOBIN 12.9 gm/dl (14.0-18.0); IMMATURE GRAN ABSOLUTE AUTO 0.02 K/mm3 (0.00-0.05); IMMATURE GRAN PERCENT AUTO 0.3 % (0.0-0.4); LYMPHOCYTES ABSOLUTE AUTO 2.5 K/mm3 (1.0-4.8); LYMPHOCYTES PERCENT AUTO 37.4 % (24.0-44.0); MEAN CORPUSCULAR HEMOGLOBIN 25.7 pg (28.0-32.0); MEAN CORPUSCULAR HGB CONC 32.3 g/dl (32.0-36.0); MEAN CORPUSCULAR VOLUME 79.8 fl (83.0-99.0); MEAN PLATELET VOLUME 10.9 fl (9.4-12.4); MONOCYTES ABSOLUTE AUTO 0.7 K/mm3 (0.0-0.8); MONOCYTES PERCENT AUTO 10.6 % (0.0-8.0); NEUTROPHILS ABSOLUTE AUTO 3.4 K/mm3 (1.8-7.7); NEUTROPHILS PERCENT AUTO 50.7 % (41.0-71.0); PLATELET COUNT,PLT 142 K/mm3 (150-400); RED BLOOD CELL COUNT 5.01 M/mm3 (4.52-5.90); WHITE BLOOD CELL COUNT,WBC 6.68 K/mm3 (3.9-11.3)
[2023-12-08 06:09] LABS: ANION GAP 13.6 (5-15); CALCIUM 8.5 mg/dL (8.5-10.1); CREATININE 1.3 mg/dL (0.7-1.3); EST CRCL DRUG DOSING (CG) 53.89 mL/min; POTASSIUM,K 3.6 mEq/L (3.5-5.1)
[2023-12-08 06:37] LABS: SLIDE REVIEW ABNORMAL SMEAR
[2023-12-08] MEDS: Finasteride 5 MG Tab PO SCH (08:52)
[2023-12-08] MEDS: valACYclovir 1,000 MG Tab PO SCH (08:52)
[2023-12-08] MEDS: Tamsulosin 0.4 MG Cap.ER PO SCH (08:52)
[2023-12-08] MEDS ORDERED: valACYclovir 1,000 MG Tab PO SCH (09:00)
[2023-12-08] MEDS ORDERED: FLU Vacc QS2022(65UP)/MF59C/PF 60 MCG/0.5 ML Syringe IM ONE (09:00)
[2023-12-08] MEDS ORDERED: Sulindac 200 MG Tab PO PRN (09:00)
[2023-12-08] MEDS ORDERED: Non-Formulary Medication 1 Each (Fluticasone/Umeclidin/Vilanter [Trelegy Ellipta 100-62.5- INH SCH ×2 (09:00)
[2023-12-08] MEDS: FLU (Fluad Quad) 2023-24(65UP)/MF59C/PF 60 MCG/0.5 ML Syringe IM ONE (10:50)
== END 2023-12-08 09:48 | disposition home or self-care (01) | DRG 872 ==
LOC: JD.ED 10:49 → JD.MS 12:37
PROVIDERS: ADMIT Hospitalist; ATTEND Hospitalist
PROC: 0T9B70Z Drainage of Bladder with Drainage Device, Via Natural or Artificial Opening (ICD-10-PCS; principal; 2023-12-07)
PROC: 3E03329 Introduction of Other Anti-infective into Peripheral Vein, Percutaneous Approach (ICD-10-PCS; 2023-12-07)
DX: A41.9 Sepsis, unspecified organism (principal); R53.1 Weakness; N39.0 Urinary tract infection, site not specified; B02.8 Zoster with other complications; R62.7 Adult failure to thrive; N40.0 Benign prostatic hyperplasia without lower urinary tract symptoms; R33.9 Retention of urine, unspecified; J44.9 Chronic obstructive pulmonary disease, unspecified; Z68.31 Body mass index [BMI] 31.0-31.9, adult; Z91.048 Other nonmedicinal substance allergy status; Z79.51 Long term (current) use of inhaled steroids; Z79.1 Long term (current) use of non-steroidal anti-inflammatories (NSAID); Z79.899 Other long term (current) drug therapy; Z90.49 Acquired absence of other specified parts of digestive tract
CPT/HCPCS: 36415; 51798; 80048; 85025; 90694; 94640; 97162-GP; 99284; 99285-25; A9270-GY; G0008; J0696; J1644; J3490